=== PATIENT | female | born 1995 | race Asian ===

== ENCOUNTER 2022-05-30 21:48 | Emergency (ER) | payer BC ==
[2022-05-30] MEDS ORDERED: Ketamine 50 MG/ML (10ML VIAL) ONE (23:06)
[2022-05-30] MEDS ORDERED: Ondansetron PF 4 MG/2 ML Vial ONE (23:06)
== END 2022-05-30 23:58 | disposition home or self-care (01) ==
LOC: CSHERS 21:48
DX: S03.02XA Dislocation of jaw, left side, initial encounter (principal); Y93.89 Activity, other specified
CPT/HCPCS: 21480; 96374; J2405

== ENCOUNTER 2023-03-25 16:33 | Outpatient (CLI) | payer BC | END 2023-03-25 16:34 | disposition home or self-care (01) | LOC: CSHRAD 16:33 | PROVIDERS: ATTEND Family Medicine | DX: G44.209 Tension-type headache, unspecified, not intractable (principal); M43.8X2 Other specified deforming dorsopathies, cervical region | CPT/HCPCS: 72050 ==

== ENCOUNTER 2023-03-31 12:17 | Emergency (ER) | payer BC ==
[2023-03-31 14:26] LABS: #Basophils 0.1 10x3/uL (0.0-0.2); #Eosinphils 0.2 10x3/uL (0.0-0.5); #Monocytes 0.3 10x3/uL (0.0-1.1); #Neutrophils 3.5 10x3/uL (1.5-8.4); %Lymphocytes 33.1 % (18.0-47.0); %Monocytes 4.9 % (0.0-10.0); %Neutrophils 57.8 % (40.0-75.0); Hematocrit 35.9 % (34.9-44.5); Hemoglobin 12.4 g/dL (12.0-15.5); Mean Corpuscular HGB CONC 34.5 g/dL (32.0-36.0); Mean Corpuscular Volume 84.1 fl (81.6-98.3); Platelet Count 218 10x3/uL (150-450); Red Blood Cell (RBC) Count 4.27 10x6/uL (3.90-5.03); White Blood Cell (WBC) Count 6.1 10x3/uL (3.5-10.5)
[2023-03-31 14:40] LABS: ALT (SGPT) 8 U/L (8-55); AST (SGOT) 13 U/L (5-34); Albumin 4.2 g/dL (3.5-5.0); Alkaline Phosphatase 52 U/L (40-110); Anion Gap 12 mmol/L (10-20); BUN (Urea Nitrogen) 10 mg/dL (7.0-18.7); Bilirubin, Total 0.5 mg/dL (0.2-1.2); Calc. Creatinine Clearance 0 mL/min (70-130); Calcium 9.1 mg/dL (7.8-10.44); Carbon Dioxide 22 mmol/L (22-29); Chloride 108 mmol/L (98-107); Estimated GFR 93; Globulin 2.7 g/dL (2.4-3.5); Glucose 94 mg/dL (70-105); Potassium 3.9 mmol/L (3.5-5.1); Protein, Total 6.9 g/dL (6.0-8.3); Sodium 138 mmol/L (136-145)
[2023-03-31 14:45] LABS: Troponin I 0.022 ng/mL (< 0.028)
== END 2023-03-31 15:52 | disposition home or self-care (01) ==
LOC: CSHERS 12:17
DX: R00.2 Palpitations (principal)
CPT/HCPCS: 36415; 71045; 80053; 84484; 85025; 93005